=== PATIENT | female | born 2000 | race Caucasian/White ===

== ENCOUNTER 2020-08-07 14:43 | Emergency (ER) | payer BC ==
[~2020-08-07] VITALS: Ht 167.6 cm; Wt 75.0 kg
[2020-08-07 15:09] VITALS: BP 116/79
[2020-08-07] MEDS ORDERED: TETanus/Pertussis (Acell)/Diphther VAC/PF (Tdap-Adult) 0.5ml syringe IMVAC ONE (16:15)
[2020-08-07] MEDS ORDERED: AMOX-422 PO (16:18)
== END 2020-08-07 16:30 | disposition home or self-care (01) ==
LOC: ER 14:44
DX: S01.551A Open bite of lip, initial encounter (principal); W54.0XXA Bitten by dog, initial encounter; Y93.89 Activity, other specified; Y92.89 Other specified places as the place of occurrence of the external cause; Y99.8 Other external cause status
CPT/HCPCS: 90471; 90715; 99283

== ENCOUNTER 2020-09-02 18:13 | Emergency (ER) | payer BC ==
[~2020-09-02] VITALS: Ht 170.2 cm; Wt 85.5 kg
[2020-09-02 18:18] VITALS: BP 116/72
[2020-09-02] MEDS ORDERED: IBUP-1984 PO (18:55)
== END 2020-09-02 19:05 | disposition home or self-care (01) ==
LOC: ER 18:13
DX: S09.90XA Unspecified injury of head, initial encounter (principal); F07.81 Postconcussional syndrome; R51.9 Headache, unspecified; Z79.899 Other long term (current) drug therapy; X58.XXXA Exposure to other specified factors, initial encounter; Y93.89 Activity, other specified; Y92.89 Other specified places as the place of occurrence of the external cause; Y99.8 Other external cause status
CPT/HCPCS: 99282